=== PATIENT | male | born 1965 | race Caucasian/White ===

== ENCOUNTER 2019-09-01 08:02 | Day surgery (SDC) | payer MEDICAID ==
[~2019-09-01] VITALS: Ht 177.8 cm; Wt 144.1 kg
[~2019-09-01 08:02] MED LIST: ATOR40TA28 PO; GLIP10 PO; LISI-662 PO; METF-960 PO; SITA25 PO; SODIUM CHLORIDE 0.9% 0 ML IV ONE; SODIUM CHLORIDE 0.9% 1,000 ML IV ONE
[2019-09-01] MEDS ORDERED: SODIUM CHLORIDE 0.9% 1,000 ML IV ONE ×2 (08:20→08:21)
[2019-09-01 08:40] LABS: GLUCOMETER DEV NAME(LOC) SDS.; GLUCOSE,POINT OF CARE 217 MG/DL (70-110)
[2019-09-01] MEDS ORDERED: LIDOCAINE/PF 2% 5 ML VIAL INJ ONE (12:00)
[2019-09-01] MEDS ORDERED: PROPOFOL 1% 20 ML VIAL IVP ONE (12:00)
== END 2019-09-01 10:15 | disposition home or self-care (01) ==
LOC: SURGERY 08:02
PROVIDERS: ATTEND Internal Medicine Gastroenterology
DX: R19.4 Change in bowel habit (principal); K21.9 Gastro-esophageal reflux disease without esophagitis; E11.9 Type 2 diabetes mellitus without complications; I10 Essential (primary) hypertension; E66.01 Morbid (severe) obesity due to excess calories; Z79.899 Other long term (current) drug therapy; Z98.890 Other specified postprocedural states
CPT/HCPCS: 45378; 82962; J2704; J3490; J7030